=== PATIENT | male | born 1965 | race Caucasian/White ===

== ENCOUNTER → 2024-03-09 | Day surgery (SDC) | payer OTHER ==
[~2024-03-09] MED LIST: ACETAMINOPHEN-1 EAC4 PO; BUPIVACAINE HCL 0.5% INJ 30 ML VIAL INJ ONE; FENTANYL CITRATE/PF 100MCG/2 ML INJ ONE; LIDOCAINE 1% W/EPINEPHRINE 20 ML VIAL ONE; LISINOPRIL10 MG PO; MIDAZOLAM HCL 2 MG/2 ML VIAL ONE; MUPIROCIN 2% OINT 22 GM TUBE ONE
[2024-03-09] MEDS: LACTATED RINGER'S 1,000 ML ONE (06:09)
[2024-03-09] MEDS: CLINDAMYCIN 600MG / 50ML 50 ML IV ONE (06:10)
[2024-03-09 08:37] VITALS: TEMP 97.3
[2024-03-09 08:50] VITALS: BP 140/83; PULSE 75; RESP 16; O2SAT 97
== END | disposition home or self-care (01) ==
LOC: OR 05:30
PROVIDERS: ATTEND Plastic Surgery
DX: L72.3 Sebaceous cyst (principal); I10 Essential (primary) hypertension; F17.210 Nicotine dependence, cigarettes, uncomplicated; Z88.0 Allergy status to penicillin; Z79.899 Other long term (current) drug therapy
CPT/HCPCS: 21012; 88304; 93005; J2250; J3010; J7121